=== PATIENT | female | born 1970 | race Hispanic/Latino ===

== ENCOUNTER 2017-06-01 13:09 | Emergency (ER) | payer BC | END 2017-06-01 14:01 | disposition home or self-care (01) | LOC: ERS 13:09 | DX: R51 Headache (principal); R09.81 Nasal congestion; K21.9 Gastro-esophageal reflux disease without esophagitis; M19.90 Unspecified osteoarthritis, unspecified site; G47.30 Sleep apnea, unspecified; F32.9 Major depressive disorder, single episode, unspecified; Z79.891 Long term (current) use of opiate analgesic; Z79.899 Other long term (current) drug therapy | CPT/HCPCS: 99283 ==

== ENCOUNTER 2017-06-20 07:04 | Outpatient (CLI) | payer BC | END 2017-06-20 07:05 | disposition home or self-care (01) | LOC: BICMAMMO 07:04 | PROVIDERS: ATTEND Family Medicine | DX: Z12.31 Encounter for screening mammogram for malignant neoplasm of breast (principal) | CPT/HCPCS: 77063; 77067; G0202 ==

== ENCOUNTER 2018-08-06 09:05 | Outpatient (CLI) | payer BC | END 2018-08-06 09:06 | disposition home or self-care (01) | LOC: BICMAMMO 09:05 | PROVIDERS: ATTEND Family Medicine | DX: Z12.31 Encounter for screening mammogram for malignant neoplasm of breast (principal); R92.1 Mammographic calcification found on diagnostic imaging of breast; Z80.3 Family history of malignant neoplasm of breast | CPT/HCPCS: 77063; 77067 ==

== ENCOUNTER 2018-11-10 06:59 | Day surgery (SDC) | payer BC ==
[2018-11-09 11:04] VITALS: BMI 35.4
--- NOTE | 2018-11-10 08:16 | RAD ---
EXAM: Thoracic spine: 3 views INDICATIONS: Back pain COMPARISON: None. FINDINGS: Thoracic vertebral maintain normal height and alignment. Disc spaces are maintained. Mild d egenerative osteophytes. No lytic or blastic process. Dorsal column Stimulators in place with leads at the T9 level. IMPRESSION: Mild degenerative change
--- NOTE | 2018-11-10 10:04 | CT ---
CT lumbar spine with contrast: (CT lumbar myelogram) DATE: 11/10/2018 HISTORY: 48-year-old female with chronic low back pain FINDINGS: There is moderate sclerosis, very mild osteophytosis, irregularity of articular surfaces, and vacuum joint phenomenon, involving the bilateral SI joints symmetrically. There are 5 lumbar-type vertebrae. Vertebral body heights and disc spaces are maintained. Alignment i s normal. No high-grade facet DJD at any level. Conus medullaris terminates at mid L1 level. Cauda equina is arranged in a symmetrical, normal distribution throughout the thecal sac. Prevertebral spac es are normal. No destructive osseous lesion. No significant disc bulge or significant focal disc herniation that impinges on a nerve root at any level. Dorsal column stimulator leads enter the spina l canal at approximately T11 or T10, and ascend a short distance to the mid T9 level. 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 IMPRESSION: 1.) Moderate arthrosis of the bilateral sacroiliac joints. 2.) The lumbar spine is normal.
--- NOTE | 2018-11-10 10:17 | RAD ---
MYELOGRAM LUMBAR SPINE: DATE: 11/10/2018 HISTORY: 48-year-old female with chronic low back pain TECHNIQUE: Informed consent was obtained. Rehab Tech imaging was performed. Patient was placed in a prone position an d the skin of the low back was prepped and draped in a standard sterile fashion. Topical anesthesia was achieved with buffered 1% lidocaine. 22-gauge spinal needle was then advanced uneventfully into t he thecal sac from a posterior para midline approach at the right L1-2level. 10 mL of radiopaque contrast was instilled under low pressure into the thecal sac, upon return of clear colorless CSF the needle hub. Imaging was stored for documentation. Needle was removed. Patient tolerated the procedure well, without complication evident. Patient was then transferred to CT to undergo subsequen t CT myelogram imaging. Reference separate exam(s) for additional details. FINDINGS: Intraoperative imaging reveals a needle overlying the lumbar spinal canal, with subsequent instillat ion of radiopaque contrast within the thecal sac. There is moderate sclerosis, very mild osteophytosis, irregularity of articular surfaces, and vacuum joint phenomenon, involving the bilateral SI joints symmetrically. There are 5 lumbar-type vertebrae. Vertebral body heights and disc spaces are maintained. Alignment i s normal. No high-grade facet DJD at any level. Conus medullaris terminates at mid L1 level. Dorsal column stimulator leads enter the spinal canal at lower thoracic spine. There is no central st enosis or neural foraminal stenosis at any level.. IMPRESSION: 1.) Moderate arthrosis of the bilateral sacroiliac joints. 2.) The lumbar spine is normal.
[2018-11-10] MEDS ORDERED: Iopamidol-M 200 41% 20 ML VIAL ONE (11:36)
== END 2018-11-10 09:50 | disposition home or self-care (01) ==
LOC: SDC 06:59
PROVIDERS: ATTEND Neurological Surgery
PROC: B02B1ZZ Computerized Tomography (CT Scan) of Spinal Cord using Low Osmolar Contrast (ICD-10-PCS; principal; 2018-11-10)
DX: M47.898 Other spondylosis, sacral and sacrococcygeal region (principal); G89.29 Other chronic pain; F32.9 Major depressive disorder, single episode, unspecified; K21.9 Gastro-esophageal reflux disease without esophagitis; G47.30 Sleep apnea, unspecified; M50.20 Other cervical disc displacement, unspecified cervical region; K58.9 Irritable bowel syndrome, unspecified; Z87.891 Personal history of nicotine dependence; Z79.891 Long term (current) use of opiate analgesic; Z79.51 Long term (current) use of inhaled steroids; Z79.899 Other long term (current) drug therapy
CPT/HCPCS: 62304; 72070; 72132

== ENCOUNTER 2019-04-16 10:12 | Outpatient (CLI) | payer BC | END 2019-04-16 10:13 | disposition home or self-care (01) | LOC: DTY/OP 10:12 | PROVIDERS: ATTEND Internal Medicine Gastroenterology | DX: K21.9 Gastro-esophageal reflux disease without esophagitis (principal); K58.9 Irritable bowel syndrome, unspecified; R68.89 Other general symptoms and signs | CPT/HCPCS: 97802 ==

== ENCOUNTER 2019-04-19 11:03 | Emergency (ER) | payer BC ==
[2019-04-19 12:37] LABS: #Eosinphils 0.1 thou/uL (0.0-0.7); #Lymphocytes 2.5 thou/uL (1.20-3.40); #Monocytes 0.5 thou/uL (0.11-0.59); #Neutrophils 4.6 thou/uL (1.40-6.50); %Basophils 0.5 % (0.0-1.0); %Eosinophils 1.8 % (0.0-10.0); %Lymphocytes 31.9 % (21.0-51.0); %Neutrophils 58.9 % (42.0-75.0); Hemoglobin 11.8 g/dL (12.0-16.0); Mean Corpuscular HGB CONC 31.7 g/dL (32.0-36.0); Mean Corpuscular Hemoglobin 28.3 pg (27.0-31.0); Mean Corpuscular Volume 89.2 fL (78.0-98.0); Mean Platelet Volume 8.6 fL (7.4-10.4); Platelet Count 337 thou/uL (130-400); RBC Distribution Width 12.3 % (11.5-14.5); Red Blood Cell (RBC) Count 4.19 mill/uL (4.20-5.40); White Blood Cell (WBC) Count 7.7 thou/uL (4.8-10.8)
--- NOTE | 2019-04-19 12:40 | RAD ---
Chest one view HISTORY: Allergic reaction. FINDINGS: Cardiac silhouette is magnified by projection. Pulmonary vasculature is unremarkable. Media stinum is midline. Dorsal column stimulator leads over the lower thoracic spine. No confluent airspace consolidation or evidence of pneumothorax. IMPRESSION: No active cardiopulmonary abnormalities are demonstrated.
[2019-04-19 12:59] LABS: ALT (SGPT) 14 U/L (8-55); AST (SGOT) 14 U/L (5-34); Albumin 4.5 g/dL (3.5-5.0); Alkaline Phosphatase 100 U/L (40-110); Anion Gap 10 mmol/L (10-20); BUN (Urea Nitrogen) 10 mg/dL (7.0-18.7); Bilirubin, Total 0.3 mg/dL (0.2-1.2); Calc. Creatinine Clearance 0 mL/min (70-130); Calcium 9.7 mg/dL (7.8-10.44); Carbon Dioxide 29 mmol/L (22-29); Chloride 104 mmol/L (98-107); Estimated GFR-MDRD 69; Globulin 3.1 g/dL (2.4-3.5); Glucose 84 mg/dL (70-105); Potassium 4.4 mmol/L (3.5-5.1); Protein, Total 7.6 g/dL (6.0-8.3); Sodium 139 mmol/L (136-145)
[2019-04-19 14:35] LABS: BHCG - Serum Negative (NEGATIVE); Pregs Control Background? CLEAR/WHITE (CLR/WHITE); Pregs Control Bar Appear? YES (CONTROL BAR)
[2019-04-19] MEDS ORDERED: Ondansetron PF 4 MG/2 ML Vial ONE (14:36)
[2019-04-19] MEDS ORDERED: Ketorolac Tromethamine 30 MG/ML VIAL ONE (14:36)
[2019-04-19 15:21] LABS: Troponin I Less than 0.010 ng/mL (< 0.028)
[2019-04-19] MEDS ORDERED: Meclizine HCl 25 MG TAB ONE (16:25)
== END 2019-04-19 17:27 | disposition home or self-care (01) ==
LOC: ERS 11:03
DX: R07.2 Precordial pain (principal); R51 Headache; K21.9 Gastro-esophageal reflux disease without esophagitis; G47.30 Sleep apnea, unspecified; F32.9 Major depressive disorder, single episode, unspecified; Z79.899 Other long term (current) drug therapy
CPT/HCPCS: 36415; 71045; 80053; 83690; 84484; 84703; 85025; 93005; 94760; 96361; 96374; 96375; J1885; J2405; J8597

== ENCOUNTER 2019-08-10 14:07 | Outpatient (CLI) | payer BC ==
--- NOTE | 2019-08-10 15:04 | MMO ---
Bilateral MAMMO Bilat Screen DDI+TARYN. CLINICAL HISTORY: Patient is 49 years old and is seen for screening. The patient has the following family history of breast cancer: cousin female. The patient has no personal history of cancer. The patient has a history of right Excisional Biopsy in 2012 - benign and right Excisional Biopsy in 2001 - benign. VIEWS: The views performed were: bilateral craniocaudal with tomosynthesis; bilateral mediolateral oblique with tomosynthesis; bilateral exaggerated craniocaudal; and right mediolateral oblique. FILMS COMPARED: The present examination has been compared to prior imaging studies performed at [facility] on 06/19/2015, 06/20/2016, 06/20/2017 and 08/06/2018. This study has been interpreted with the assistance of computer-aided detection. MAMMOGRAM FINDINGS: There are scattered fibroglandular densities. There are no suspicious masses, calcifications or areas of architectural distortion. There are benign appearing calcifications in both breasts. There are no suspicious masses, suspicious calcifications, or new areas of architectural distortion. IMPRESSION: THERE IS NO MAMMOGRAPHIC EVIDENCE OF MALIGNANCY. A ROUTINE FOLLOW-UP MAMMOGRAM IN 1 YEAR IS RECOMMENDED. THE RESULTS OF THIS EXAM WERE SENT TO THE PATIENT. ACR BI-RADS Category 2 - Benign finding MAMMOGRAPHY NOTE: 1. A negative mammogram report should not delay a biopsy if a dominant of clinically suspicious mass is present. 2. Approximately 10% to 15% of breast cancers are not detected by mammography. 3. Adenosis and dense breasts may obscure an underlying neoplasm. Reported by: TIM CROWDER MD Electonically Signed: [id number]
== END 2019-08-10 14:08 | disposition home or self-care (01) ==
LOC: BICMAMMO 14:07
PROVIDERS: ATTEND Family Medicine
DX: Z12.31 Encounter for screening mammogram for malignant neoplasm of breast (principal); Z91.89 Other specified personal risk factors, not elsewhere classified; Z80.3 Family history of malignant neoplasm of breast
CPT/HCPCS: 77063; 77067

== ENCOUNTER 2019-12-10 11:30 | Outpatient (CLI) | payer BC | END 2019-12-10 11:31 | disposition home or self-care (01) | LOC: DTY/OP 11:30 | PROVIDERS: ATTEND Surgery | DX: E66.01 Morbid (severe) obesity due to excess calories (principal) | CPT/HCPCS: 97802 ==

== ENCOUNTER 2020-03-20 07:34 | Outpatient (CLI) | payer BC, OTHER ==
[2020-03-20 11:22] LABS: #Basophils 0.1 thou/uL (0.0-0.2); #Eosinphils 0.1 thou/uL (0.0-0.7); #Lymphocytes 1.8 thou/uL (1.20-3.40); #Monocytes 0.4 thou/uL (0.11-0.59); #Neutrophils 4.6 thou/uL (1.40-6.50); %Basophils 0.8 % (0.0-1.0); %Eosinophils 1.7 % (0.0-10.0); %Lymphocytes 25.9 % (21.0-51.0); %Neutrophils 65.6 % (42.0-75.0); Mean Corpuscular HGB CONC 32.1 g/dL (32.0-36.0); Mean Corpuscular Hemoglobin 28.9 pg (27.0-31.0); Mean Platelet Volume 9.3 fL (7.4-10.4); Platelet Count 335 thou/uL (130-400); RBC Distribution Width 12.7 % (11.5-14.5); Red Blood Cell (RBC) Count 4.15 mill/uL (4.20-5.40)
[2020-03-20 11:40] LABS: Hemoglobin A1c 5.6 % (4.0-6.0)
[2020-03-20 11:43] LABS: ALT (SGPT) 17 U/L (8-55); AST (SGOT) 14 U/L (5-34); Albumin 4.3 g/dL (3.5-5.0); Alkaline Phosphatase 94 U/L (40-110); Anion Gap 13 mmol/L (10-20); BUN (Urea Nitrogen) 13 mg/dL (7.0-18.7); Bilirubin, Total 0.2 mg/dL (0.2-1.2); Calc. Creatinine Clearance 0 mL/min (70-130); Calcium 9.3 mg/dL (7.8-10.44); Carbon Dioxide 26 mmol/L (22-29); Chloride 102 mmol/L (98-107); Estimated GFR-MDRD 64; Glucose 98 mg/dL (70-105); Potassium 4.4 mmol/L (3.5-5.1); Protein, Total 7.3 g/dL (6.0-8.3); Sodium 137 mmol/L (136-145)
[2020-03-20 17:57] LABS: SARS-CoV-2 MS2 Positive; SARS-CoV-2 N Gene Negative; SARS-CoV-2 S Gene Negative; SARS-CoV-2 by NAA Not Detected (NotDetected); SARS-CoV-2 orf1ab Negative
== END 2020-03-20 07:35 | disposition home or self-care (01) ==
LOC: LABBT 07:34
PROVIDERS: ATTEND Surgery
DX: Z01.812 Encounter for preprocedural laboratory examination (principal); Z20.828 Contact with and (suspected) exposure to other viral communicable diseases; E66.01 Morbid (severe) obesity due to excess calories
CPT/HCPCS: 80053; 83036; 85025; 87635; U0003

== ENCOUNTER 2020-03-20 10:00 | Inpatient (IN) | payer BC, OTHER ==
[2020-03-21 10:36] VITALS: BMI 36.0
[2020-03-23] MEDS ORDERED: PROPOFOL 200 MG/20 ML VIAL ONE (09:59)
[2020-03-23] MEDS ORDERED: Rocuronium Bromide 10 MG/ML (10ML VIAL) ONE (09:59)
[2020-03-23] MEDS ORDERED: Dexamethasone 20 MG/5 ML VIAL ONE (09:59)
[2020-03-23] MEDS ORDERED: Ondansetron PF 4 MG/2 ML Vial ONE (09:59)
[2020-03-23] MEDS ORDERED: Lidocaine 1% PF 5 ML VIAL ONE (09:59)
[2020-03-23] MEDS ORDERED: Bupivacaine 0.25% HCL 30 ML VIAL ONE (10:19)
[2020-03-23] MEDS ORDERED: Lidocaine 1% w/Epinephrine 1:100K 20 ML VIAL ONE (10:19)
[2020-03-23] MEDS ORDERED: Fentanyl 100 MCG/2 ML VIAL ONE ×2 (10:32→14:10)
[2020-03-23] MEDS ORDERED: HYDROmorphone 0.5 MG/0.5 ML SYRINGE ONE (10:32)
--- NOTE | 2020-03-23 12:06 | RAD ---
CHEST 1 VIEW: Date: 03/23/2020 INDICATION: Preprocedure evaluation. COMPARISON: Prior exam dated 04/19/2019. FINDINGS: There is a dorsal column stimulator overlying the lower thoracic spine. The lungs are clear. Heart si ze is normal. No pleural effusion or pneumothorax is evident. No acute osseous abnormality is noted. IMPRESSION: No acute abnormality. Stable dorsal column stimulator. POS: BH
[2020-03-23] MEDS ORDERED: SUGAMMADEX SODIUM 200 MG/2 ML VIAL ONE (13:12)
[2020-03-23] MEDS ORDERED: diphenhydrAMINE 50 MG/ML VIAL IVP PRN ×2 (13:27→14:25)
[2020-03-23] MEDS ORDERED: Dextrose 50% Abboject 50 ML SYRINGE SLOW IVP PRN (13:27)
[2020-03-23] MEDS ORDERED: Dextrose 5% in Water 1,000 ML IV PRN (13:27)
[2020-03-23] MEDS ORDERED: Promethazine HCl 25 MG/ML VIAL IM PRN ×3 (13:27→14:25)
[2020-03-23] MEDS ORDERED: Hydrocodone-Acetamin 15 ML UDCUP PO PRN (13:27)
[2020-03-23] MEDS ORDERED: Ondansetron PF 4 MG/2 ML Vial IVP PRN ×2 (13:27→14:25)
[2020-03-23] MEDS ORDERED: hydrALAZINE 20 MG/ML VIAL SLOW IVP PRN (13:27)
[2020-03-23] MEDS ORDERED: Promethazine HCl 25 MG/ML VIAL SLOW IVP PRN (13:44)
[2020-03-23] MEDS ORDERED: HYDROmorphone 2 MG/ML VIAL SLOW IVP PRN (13:44)
[2020-03-23] MEDS ORDERED: Ondansetron HCl/PF 4 MG/2 ML Vial IVP PRN (13:44)
[2020-03-23] MEDS ORDERED: diphenhydrAMINE 50 MG/ML VIAL IM PRN (14:25)
[2020-03-23] MEDS ORDERED: fentaNYL Citrate/PF 2,000 MCG in Sodium Chloride 0.9% 60 ML IV PRN (14:25)
[2020-03-23] MEDS ORDERED: Zolpidem Tartrate 5 MG TAB PO PRN (14:25)
[2020-03-23] MEDS ORDERED: diphenhydrAMINE 25 MG CAP PO PRN (14:25)
[2020-03-23] MEDS ORDERED: Naloxone HCl 0.4 mg/ml Vial IV PRN (14:25)
[2020-03-23] MEDS ORDERED: Communication Order-Pharmacy FS SCH (14:30)
[2020-03-23] MEDS ORDERED: Promethazine HCl 25 MG/ML VIAL ONE (14:56)
[2020-03-23] MEDS: D5 1/2 NS w/20 mEq KCL 1,000 ML IV SCH ×3 (16:08→21:10)
[2020-03-23] MEDS: CEFAZOLIN 2 GM in Premix Bag 1 BAG IVPB SCH (17:08)
[2020-03-23] MEDS: Ketorolac Tromethamine 30 MG/ML VIAL IVP SCH (17:19)
[2020-03-23] MEDS ORDERED: Ketorolac Tromethamine 30 MG/ML VIAL IVP SCH (18:00)
--- NOTE | 2020-03-23 18:52 | OP ---
DATE OF PROCEDURE: 03/23/2020 INDICATIONS FOR PROCEDURE: This is a 49-year-old female who is morbidly obese. She has had severe reflux esophagitis. FINDINGS: 100 cm Elvi limb, 50 cm biliary pancreatic limb. Lap Elvi-en-Y gastric bypass with esophagogastroduodenoscopy performed. DESCRIPTION OF PROCEDURE: After informed consent was obtained, the patient was taken to the operating room, given general endotracheal anesthesia, placed in the supine position. Abdomen was prepped and draped in usual fashion. Local anesthesia was infiltrated subcutaneously and deep. A 12 mm incision was performed approximately 8 inches below the xiphoid, slightly to left. Veress needle was inserted. Drop test performed. Pneumoperitoneum was created to a volume of 2 L of carbon dioxide. Utilizing a bladeless 12-mm trocar and 0-degree laparoscope, direct visual entry into the abdominal cavity was performed. Pneumoperitoneum was created to a pressure of 15 mmHg. A 0-degree laparoscope was inserted under direct vision. Two 12 mm ports were placed on the right and one on the left. The laparoscopic lysis of adhesions had to be performed to free up the omentum. The omentum was grasped and advanced superiorly. The ligament of Treitz was found, and 50 cm of proximal small bowel measured off. The jejunum was divided utilizing a linear 60-mm white load stapler. Then, distally 100 cm of bowel was measured off. A [id number] functional end-to-end anastomosis was performed. Enterotomies were performed on the antimesenteric aspect of both limbs. Enterotomies created. The linear 60-mm white load stapler was inserted, one limb in each limb of bowel and fired. The common enterotomy was then closed transversely with a 3-0 PDS Stratafix. The potential hernia space of Wells was closed with a [id number] of 2-0 silk tied intracorporeally. Then, the patient was placed in the steep reverse Trendelenburg position. The omentum was divided utilizing a ligature to the transverse colon. A Neva liver retractor was inserted. The left lobe of the liver was retracted superiorly. On the lesser curve, the lesser omentum was entered. Then, the stomach was divided transversely with a 60-mm blue load stapler. Then, a pouch was created towards the ligament of Treitz with a series of blue 60-mm ovi. Then, the Elvi limb was grasped and brought up to this area, and a gastrotomy was performed with the cautery and then further opened. Then, enterotomy was performed. The linear 60-mm blue load stapler was inserted, one limb in the small bowel, one limb in the stomach, closed and fired. The common enterotomy was closed transversely with 3-0 PDS Stratafix. Hemostasis was assured. Intraoperative endoscopy was then performed. The video endoscope was inserted under direct vision, advanced into the stomach and into the small bowel. There was no bleeding. No obstruction. The bowel was decompressed. Scope was removed. Hemostasis was assured. Trocars and retractors were removed. The skin was closed with interrupted 4-0 Rapide. Dermabond was applied. The patient tolerated the procedure well, transferred to Recovery in good condition. Sponge and needle count verified correct x2. Job ID: [id number]
[2020-03-24] MEDS: Ketorolac Tromethamine 30 MG/ML VIAL IVP SCH ×3 (00:59→12:25)
[2020-03-24] MEDS: CEFAZOLIN 2 GM in Premix Bag 1 BAG IVPB SCH (01:00)
[2020-03-24 05:22] LABS: #Lymphocytes 1.2 thou/uL (1.20-3.40); #Monocytes 0.9 thou/uL (0.11-0.59); #Neutrophils 11.9 thou/uL (1.40-6.50); %Eosinophils 0.1 % (0.0-10.0); %Lymphocytes 8.6 % (21.0-51.0); %Monocytes 6.5 % (0.0-10.0); %Neutrophils 84.7 % (42.0-75.0); Hemoglobin 11.2 g/dL (12.0-16.0); Mean Corpuscular HGB CONC 31.9 g/dL (32.0-36.0); Mean Corpuscular Hemoglobin 28.8 pg (27.0-31.0); Mean Corpuscular Volume 90.1 fL (78.0-98.0); Mean Platelet Volume 9.2 fL (7.4-10.4); Platelet Count 328 thou/uL (130-400); RBC Distribution Width 12.8 % (11.5-14.5); Red Blood Cell (RBC) Count 3.88 mill/uL (4.20-5.40); White Blood Cell (WBC) Count 14.1 thou/uL (4.8-10.8)
[2020-03-24 05:44] LABS: Anion Gap 11 mmol/L (10-20); BUN (Urea Nitrogen) 8 mg/dL (7.0-18.7); Calc. Creatinine Clearance 117 mL/min (70-130); Calcium 7.9 mg/dL (7.8-10.44); Carbon Dioxide 23 mmol/L (22-29); Chloride 102 mmol/L (98-107); Estimated GFR-MDRD 75; Glucose 132 mg/dL (70-105); Potassium 4.3 mmol/L (3.5-5.1); Sodium 132 mmol/L (136-145)
[2020-03-24] MEDS ORDERED: Pantoprazole 40 MG VIAL IVP SCH (09:00)
[2020-03-24] MEDS ORDERED: Enoxaparin Sodium 40 MG/0.4 ML SYRINGE SC SCH (09:00)
[2020-03-24 11:30] VITALS: BP 124/81; TEMP 98.1
[2020-03-24 11:31] LABS: SARS-CoV-2 MS2 Positive; SARS-CoV-2 N Gene Negative; SARS-CoV-2 S Gene Negative; SARS-CoV-2 by NAA Not Detected (NotDetected); SARS-CoV-2 orf1ab Negative
--- NOTE | 2020-03-25 05:55 | DIS ---
DATE OF ADMISSION: 03/23/2020 DATE OF DISCHARGE: 03/24/2020 DISCHARGE DIAGNOSIS: Morbid obesity with gastroesophageal reflux. PROCEDURES DURING ADMISSION: Laparoscopic Elvi-en-Y gastric bypass, intraoperative esophagogastroscopy. HOSPITAL COURSE: The patient was admitted, taken to the operating room, where she underwent the gastric bypass and EGD. Postoperatively, she has done well. She is tolerating her liquids well. Her pain is controlled on p.o. meds. She is discharged home on hydrocodone and Zofran. She will follow up with me in 2 weeks. Job ID: [id number]
== END 2020-03-24 14:40 | disposition home or self-care (01) | DRG 621 ==
LOC: SURG A 03-23 09:05 → SJJU 03-23 15:22
PROVIDERS: ADMIT Surgery; ATTEND Surgery
PROC: 0D164ZA Bypass Stomach to Jejunum, Percutaneous Endoscopic Approach (ICD-10-PCS; principal; 2020-03-23)
PROC: 0DJ08ZZ Inspection of Upper Intestinal Tract, Via Natural or Artificial Opening Endoscopic (ICD-10-PCS; 2020-03-23)
DX: E66.01 Morbid (severe) obesity due to excess calories (principal); K21.0 Gastro-esophageal reflux disease with esophagitis; Z20.828 Contact with and (suspected) exposure to other viral communicable diseases; Z68.36 Body mass index [BMI] 36.0-36.9, adult
CPT/HCPCS: 36415; 71045; 80048; 80053; 83036; 85025; 87635; 94760; C9113; J0690; J1100; J1170; J1650; J1885; J2405; J2550; J2704; J3010; J3480; S0020; U0003

== ENCOUNTER 2020-03-25 06:13 | Inpatient (IN) | payer BC, MEDICARE ==
[2020-03-25 07:24] LABS: #Eosinphils 0.1 thou/uL (0.0-0.7); #Lymphocytes 1.2 thou/uL (1.20-3.40); #Neutrophils 12.2 thou/uL (1.40-6.50); %Basophils 0.2 % (0.0-1.0); %Eosinophils 0.4 % (0.0-10.0); %Lymphocytes 8.1 % (21.0-51.0); %Monocytes 6.9 % (0.0-10.0); %Neutrophils 84.4 % (42.0-75.0); Mean Corpuscular HGB CONC 32.5 g/dL (32.0-36.0); Mean Corpuscular Volume 89.1 fL (78.0-98.0); Mean Platelet Volume 9.6 fL (7.4-10.4); Platelet Count 281 thou/uL (130-400); RBC Distribution Width 12.8 % (11.5-14.5); Red Blood Cell (RBC) Count 3.81 mill/uL (4.20-5.40); White Blood Cell (WBC) Count 14.5 thou/uL (4.8-10.8)
[2020-03-25] MEDS ORDERED: Morphine 4 MG/ML VIAL ONE (07:34)
[2020-03-25 07:43] LABS: ALT (SGPT) 12 U/L (8-55); AST (SGOT) 19 U/L (5-34); Albumin 3.6 g/dL (3.5-5.0); Alkaline Phosphatase 94 U/L (40-110); Anion Gap 14 mmol/L (10-20); BUN (Urea Nitrogen) 7 mg/dL (7.0-18.7); Bilirubin, Total 0.5 mg/dL (0.2-1.2); Calc. Creatinine Clearance 0 mL/min (70-130); Calcium 8.3 mg/dL (7.8-10.44); Carbon Dioxide 23 mmol/L (22-29); Chloride 101 mmol/L (98-107); Estimated GFR-MDRD 78; Globulin 3.5 g/dL (2.4-3.5); Glucose 99 mg/dL (70-105); Protein, Total 7.1 g/dL (6.0-8.3); Sodium 134 mmol/L (136-145)
[2020-03-25 08:04] LABS: CKMB 1.5 ng/mL (0-6.6)
[2020-03-25 08:24] LABS: Bacteria/HPF 2+ HPF (None Seen); Bilirubin Negative (Negative); Blood, Urine Negative (Negative); Clarity Turbid (Clear); Glucose, Urine (Dipstick) Normal (Negative); Ketone, Urine Greater than 150 mg/dL (Negative); Leukocyte Negative Leu/uL (Negative); Nitrite Negative (Negative); Protein, Urine (Dipstick) 70 mg/dL (Neg-Trace); RBC/HPF 0-3 HPF (0-3); Specific Gravity, Urine 1.021 (1.002-1.036); Urobilinogen Normal mg/dL (Less than 2); WBC/HPF 0-3 HPF (0-3)
[2020-03-25] MEDS ORDERED: Cefepime 2 GM VIAL ONE (08:51)
[2020-03-25] MEDS ORDERED: cefTRIAXone\\ROCEPHIN 2 GM VIAL ONE (08:54)
--- NOTE | 2020-03-25 09:04 | RAD ---
PORTABLE CHEST: HISTORY: Gastric bypass 2 days ago now with fever. FINDINGS: Heart size is within normal limits for portable technique. Some bibasilar atelectatic lung change is seen, somewhat more prominent in the retrocardiac region. IMPRESSION: Bibasilar atelectatic lung change. POS: OFF
--- NOTE | 2020-03-25 09:19 | CT ---
CT ANGIOGRAM THORAX WITH IV CONTRAST AND 3-D RECONSTRUCTIONS CLINICAL INDICATION: Shortness of breath and tachycardia. Fever. Gastric bypass procedure 2 days ago. COMPARISON: None FINDINGS: Pulmonary arteries: No filling defects are seen in the pulmonary arteries to suggest a pulmonary embo jennifer. Aorta: The aorta is normal in caliber without evidence of an aortic dissection. Lungs: There is parenchymal consolidation seen at each lung base which could be related to atelectasi s, bibasilar pneumonia, or aspiration pneumonitis. Tiny left pleural effusion is present. Mediastinum: The heart is mildly enlarged. No enlarged lymph nodes are identified. Thyroid gland: The limited visualized inferior aspect of the thyroid gland has a normal CT appearance . Osseous structures: A dorsal column stimulator device is noted in place terminates T9-T10 level. No s uspicious lytic or sclerotic osseous lesions are identified. Minimal degenerative changes are present in the spine. Chest wall: Within normal limits Upper abdomen: Postoperative changes related to gastric bypass procedure partially imaged on this exa m. Evidence of prior cholecystectomy is seen. Punctate foci of gas are seen anterior to the liver with trace amount of free fluid. These findings are likely related to recent postoperative changes. IMPRESSION: 1. Consolidation posteromedial aspect of each lung base which could be related to bibasilar volume lo ss, bilateral pneumonia, or aspiration pneumonitis. 2. Tiny left pleural effusion. 3. Mild cardiomegaly. 4. No CT evidence of a pulmonary embolus. 5. Postoperative changes related to gastric bypass procedure partially imaged on this CT angiogram. 6. Punctate foci of gas with trace amount of free fluid anterior to the left hepatic lobe likely attr ibutable to recent postoperative changes.
[2020-03-25] MEDS ORDERED: Azithromycin 500 MG VIAL ONE (12:01)
[2020-03-25] MEDS ORDERED: Vancomycin 1.5 GRAM/300 ML BAG 1.5 GM in Premix Bag 1 BAG IVPB SCH (12:45)
[2020-03-25] MEDS ORDERED: Ondansetron PF 4 MG/2 ML Vial ONE (12:50)
[2020-03-25] MEDS ORDERED: Iopamidol 370 76% 50 ML VIAL FS ONE (13:40)
[2020-03-25] MEDS ORDERED: Iopamidol-370 76% 500 ML 1 ML ONE (13:40)
--- NOTE | 2020-03-25 13:43 | CT ---
CT OF ABDOMEN PERFORMED WITH INTRAVENOUS CONTRAST ENHANCEMENT: 03/25/20 HISTORY: Epigastric pain and bloating with shortness of breath. Fever. Recent gastric bypass surgery two days ago. The lung bases show bibasilar atelectasis or infiltrate, somewhat more prominent changes in the left base with air bronchograms in both bases. The liver and spleen show no focal abnormalities. The pancreas shows no evidence of mass. The gallbla dder has been removed. There is some mild ductal prominence probably just on the basis of the cholecy stectomy. Right and left adrenal glands and right and left kidneys are normal in size. There is no significant periaortic or mesenteric adenopathy. Postoperative changes of the stomach related to a bypass procedure noted. Some oral contrast was give n. I see no evidence of a leak. No contrast is seen in the excluded portion of the stomach. No free f luid within the abdomen. CT OF PELVIS PERFORMED WITH CONTRAST ENHANCEMENT: No adenopathy, mass or free fluid. IMPRESSION: 1. Prominent bibasilar lung changes consistent with atelectasis or developing infiltrate. 2. Postop gastric bypass. I do not see any definite signs of a leak. POS: OFF
[2020-03-25] MEDS ORDERED: Guaifenesin DM 100-10/5 ML UDCUP PO PRN (14:41)
[2020-03-25] MEDS ORDERED: Bisacodyl 10 MG SUPP PR PRN (14:41)
[2020-03-25] MEDS ORDERED: Calcium Carbonate 500 MG ChewTAB PO PRN (14:41)
[2020-03-25] MEDS ORDERED: Acetaminophen 650 MG Suppository PR PRN (14:41)
[2020-03-25 14:50] VITALS: BMI 34.9
[2020-03-25] MEDS: Sodium Chloride 0.9% 1,000 ML IV SCH (15:53)
--- NOTE | 2020-03-25 16:16 | PDOC.HOSPP ---
- Subjective Encounter Date: 03/25/20 Encounter Time: 16:00 Subjective: no fever now, sob better on O2 - Objective Vital Signs & Weight: Vital Signs (12 hours) Temp Pulse Resp BP Pulse Ox 03/25/20 14:05 98.7 F 110 H 16 132/80 100 Weight Weight 191 lb Result Diagrams: 03/26/20 05:31 03/26/20 05:31 Hospitalist ROS - Medication Medications: Active Medications Generic Name Dose Route Start Last Admin Trade Name Freq PRN Reason Stop Dose Admin Sodium Chloride 1,000 mls @ 80 mls/hr 03/25/20 14:45 03/25/20 15:53 Normal Saline 0.9% IV 1,000 mls .[id number] RYAN Administration - Exam General Appearance: awake alert Eye: PERRL, anicteric sclera ENT: no oropharyngeal lesions, moist mucosa Neck: supple, no JVD Heart: RRR, no murmur Respiratory: no wheezes, no rales, rhonchi Gastrointestinal: soft, non-tender, non-distended, normal bowel sounds Extremities: no cyanosis, no edema Neurological: cranial nerve grossly intact, no focal deficits Psychiatric: A&O x 3 Hosp A/P (1) PNA (pneumonia) Code(s): J18.9 - PNEUMONIA, UNSPECIFIED ORGANISM Status: Acute Qualifiers: Pneumonia type: due to unspecified organism (2) Obesity (BMI 30.0-34.9) Code(s): E66.9 - OBESITY, UNSPECIFIED Status: Chronic (3) GEETHA (obstructive sleep apnea) Code(s): G47.33 - OBSTRUCTIVE SLEEP APNEA (ADULT) (PEDIATRIC) Status: Chronic (4) Mood disorder Code(s): F39 - UNSPECIFIED MOOD [AFFECTIVE] DISORDER Status: Chronic (5) Status post gastric bypass for obesity Code(s): Z98.84 - BARIATRIC SURGERY STATUS Status: Acute - Plan is on cefepime and zithromax i.spirometry home meds nebs prn iv fluids to ambulate as tolerated
[2020-03-25] MEDS: Acetaminophen 325 MG TAB PO PRN (17:47)
[2020-03-25] MEDS: Ondansetron PF 4 MG/2 ML Vial IVP PRN (17:52)
[2020-03-25] MEDS: Zolpidem Tartrate 5 MG TAB PO SCH (20:37)
[2020-03-25] MEDS: DULoxetine 60 MG CAP PO SCH (20:37)
[2020-03-25] MEDS: Dicyclomine 20 MG TAB PO SCH (20:37)
[2020-03-25] MEDS: Cefepime 1 GM in Sodium Chloride 0.9% 100 ML IVPB SCH (20:37)
[2020-03-25] MEDS ORDERED: Famotidine 20 MG TAB PO SCH (21:00)
[2020-03-26] MEDS: Sodium Chloride 0.9% 1,000 ML IV SCH ×2 (04:41→14:40)
[2020-03-26 05:44] LABS: #Eosinphils 0.2 thou/uL (0.0-0.7); #Lymphocytes 1.4 thou/uL (1.20-3.40); #Monocytes 0.6 thou/uL (0.11-0.59); #Neutrophils 8.2 thou/uL (1.40-6.50); %Basophils 0.2 % (0.0-1.0); %Eosinophils 2.2 % (0.0-10.0); %Lymphocytes 12.9 % (21.0-51.0); %Monocytes 6.2 % (0.0-10.0); %Neutrophils 78.5 % (42.0-75.0); Hemoglobin 9.7 g/dL (12.0-16.0); Mean Corpuscular HGB CONC 32.5 g/dL (32.0-36.0); Mean Corpuscular Hemoglobin 29.3 pg (27.0-31.0); Mean Corpuscular Volume 89.9 fL (78.0-98.0); Platelet Count 264 thou/uL (130-400); RBC Distribution Width 12.7 % (11.5-14.5); White Blood Cell (WBC) Count 10.4 thou/uL (4.8-10.8)
--- NOTE | 2020-03-26 05:45 | HP ---
CHIEF COMPLAINT: Fever. HISTORY OF PRESENT ILLNESS: The patient is a 49-year-old female, 2 days status post laparoscopic Elvi-en-Y gastric bypass for morbid obesity. She said she woke up this morning and felt hot and took her temperature, it was 101.5, so she came to the emergency room. She was found to be somewhat tachycardic as well. CT scan showed bibasilar infiltrates, but no free fluid or free air. They could not see any evidence of a leak. She reports that she really had not been ambulating much. PAST MEDICAL HISTORY: Consistent with depression, . PAST SURGICAL HISTORY: She has had hysterectomy, cholecystectomy, and breast biopsy. SOCIAL HISTORY: She is . No tobacco. No alcohol. PHYSICAL EXAMINATION: VITAL SIGNS: Temperature is 98.7, pulse 110, and blood pressure is 132/80. GENERAL: She is awake, alert, does not appear to be in any distress. HEENT: Unremarkable. LUNGS: Clear. HEART: Regular rate and rhythm. ABDOMEN: Distended, really no tenderness. The incisions look good. LABORATORY DATA: Her white count is 14.5, H and H of 11 and 34, and platelet count 281. Electrolytes are fine. ASSESSMENT: Fever, tachycardia, also she has her , who has recently been positive for COVID, although her COVID test was negative. She may have atelectasis versus pneumonia. PLAN: Ambulation. Incentive spirometer. Antibiotics. Job ID: [id number]
[2020-03-26 06:05] LABS: Anion Gap 13 mmol/L (10-20); BUN (Urea Nitrogen) 5 mg/dL (7.0-18.7); Calc. Creatinine Clearance 135 mL/min (70-130); Calcium 7.9 mg/dL (7.8-10.44); Carbon Dioxide 20 mmol/L (22-29); Chloride 107 mmol/L (98-107); Estimated GFR-MDRD Greater than 90; Glucose 78 mg/dL (70-105); Potassium 3.8 mmol/L (3.5-5.1); Sodium 136 mmol/L (136-145)
[2020-03-26] MEDS: Dicyclomine 20 MG TAB PO SCH ×2 (09:16→21:42)
[2020-03-26] MEDS: Enoxaparin Sodium 40 MG/0.4 ML SYRINGE SC SCH (09:17)
[2020-03-26] MEDS: Bupropion 150 MG XL TAB PO SCH (09:17)
[2020-03-26] MEDS: Fluticasone Propionate Nasal Spray 16 gm Bottle NASAL SCH (09:18)
[2020-03-26] MEDS: Pantoprazole 40 MG GRANULES PACKET PO SCH (09:18)
[2020-03-26] MEDS: Cefepime 1 GM in Sodium Chloride 0.9% 100 ML IVPB SCH ×2 (09:27→21:41)
[2020-03-26] MEDS ORDERED: Milk Of Magnesia 30 ML UDCUP PO PRN (10:34)
--- NOTE | 2020-03-26 10:56 | PRG ---
DATE OF SERVICE: 03/26/2020 SUBJECTIVE: The patient is feeling a lot better today. She is passing gas. She is tolerating full liquids. No nausea or vomiting. PHYSICAL EXAMINATION: VITAL SIGNS: Temperature is 98.2, pulse 95, blood pressure 128/82. GENERAL: She is awake, alert. ABDOMEN: Soft, nondistended, nontender. Incisions look good. LABORATORY DATA: Her white count is down to 10, H and H of 9.7 and 29, platelet count 264. Electrolytes are fine. ASSESSMENT: Improving pneumonia. PLAN: Continue IV antibiotics. Ambulate. Pulmonary toilet. Job ID: [id number]
--- NOTE | 2020-03-26 11:32 | PDOC.HOSPP ---
- Subjective Encounter Date: 03/26/20 Encounter Time: 09:45 Subjective: no sob, feels better is amb in room tolerating oral diet - Objective Vital Signs & Weight: Vital Signs (12 hours) Temp Pulse Resp BP Pulse Ox 03/26/20 07:43 98.2 F 95 18 128/82 92 L 03/25/20 23:36 97.8 F 89 18 122/80 91 L Weight Weight 191 lb I&O: 03/25/20 03/26/20 03/27/20 06:59 06:59 06:59 Intake Total 1300 960 Balance 1300 960 Result Diagrams: 03/26/20 05:31 03/26/20 05:31 Hospitalist ROS - Medication Medications: Active Medications Generic Name Dose Route Start Last Admin Trade Name Freq PRN Reason Stop Dose Admin Acetaminophen 650 mg 03/25/20 14:41 03/25/20 17:47 Acetaminophen 325 Mg Tab PO 650 mg Q4H PRN Administration Headache/Fever/Mild Pain (1-3) Bupropion HCl 150 mg 03/26/20 09:00 03/26/20 09:17 Bupropion 150 Mg Xl Tab PO 150 mg DAILY RYAN Administration Dicyclomine HCl 20 mg 03/25/20 21:00 03/26/20 09:16 Dicyclomine 20 Mg Tab PO 20 mg BID RYAN Administration Duloxetine HCl 60 mg 03/25/20 21:00 03/25/20 20:37 Duloxetine 60 Mg Cap PO Not Given HS RYAN Enoxaparin Sodium 40 mg 03/26/20 09:00 03/26/20 09:17 Enoxaparin Sodium 40 Mg/0.4 Ml Syringe SC 40 mg 0900 RYAN Administration Fluticasone Propionate 0 gm 03/26/20 09:00 03/26/20 09:18 Fluticasone Propionate Nasal Raymond 16 Gm Bottle NASAL 2 spr DAILY RYAN Administration Cefepime HCl 1 gm/ Sodium 100 mls @ 200 mls/hr 03/25/20 21:00 03/26/20 09:27 Chloride IVPB 100 mls Q12HR RYAN Administration Sodium Chloride 1,000 mls @ 80 mls/hr 03/25/20 14:45 03/26/20 04:41 Normal Saline 0.9% IV Not Given .[id number] RYAN Ondansetron HCl 4 mg 03/25/20 14:41 03/25/20 17:52 Ondansetron Pf 4 Mg/2 Ml Vial IVP 4 mg Q6H PRN Administration Nausea/Vomiting Pantoprazole Sodium 40 mg 03/26/20 09:00 03/26/20 09:18 Pantoprazole 40 Mg Granules Packet PO 40 mg DAILY RYAN Administration Zolpidem Tartrate 10 mg 03/25/20 21:00 03/25/20 20:37 Zolpidem Tartrate 5 Mg Tab PO 10 mg HS RYAN Administration - Exam General Appearance: awake alert Eye: PERRL, anicteric sclera ENT: no oropharyngeal lesions, moist mucosa Neck: supple, no JVD Heart: RRR, no murmur Respiratory: no wheezes, no rales Gastrointestinal: soft, non-tender, non-distended, normal bowel sounds Extremities: no cyanosis, no edema Neurological: cranial nerve grossly intact, no focal deficits Psychiatric: normal affect, A&O x 3 Hosp A/P (1) PNA (pneumonia) Code(s): J18.9 - PNEUMONIA, UNSPECIFIED ORGANISM Status: Acute Qualifiers: Pneumonia type: due to unspecified organism (2) Obesity (BMI 30.0-34.9) Code(s): E66.9 - OBESITY, UNSPECIFIED Status: Chronic (3) GEETHA (obstructive sleep apnea) Code(s): G47.33 - OBSTRUCTIVE SLEEP APNEA (ADULT) (PEDIATRIC) Status: Chronic (4) Mood disorder Code(s): F39 - UNSPECIFIED MOOD [AFFECTIVE] DISORDER Status: Chronic (5) Status post gastric bypass for obesity Code(s): Z98.84 - BARIATRIC SURGERY STATUS Status: Acute - Plan is on cefepime and zithromax i.spirometry home meds nebs prn iv fluids to ambulate as tolerated hemostable encourage po intake
[2020-03-26] MEDS: Azithromycin 500 MG in Sodium Chloride 0.9% 250 ML 250 ML IVPB SCH (12:45)
[2020-03-26] MEDS: Ondansetron PF 4 MG/2 ML Vial IVP PRN ×2 (13:31→20:08)
[2020-03-26] MEDS: Acetaminophen 325 MG TAB PO PRN ×2 (13:34→21:41)
[2020-03-26] MEDS: Senokot S 8.6-50 MG TAB PO PRN (13:39)
[2020-03-26] MEDS: DULoxetine 60 MG CAP PO SCH (21:39)
[2020-03-26] MEDS: Zolpidem Tartrate 5 MG TAB PO SCH (21:42)
[2020-03-27] MEDS: Sodium Chloride 0.9% 1,000 ML IV SCH ×3 (04:17→18:05)
[2020-03-27] MEDS ORDERED: Ondansetron ODT 4 MG TAB PO PRN (05:17)
[2020-03-27] MEDS: Senokot S 8.6-50 MG TAB PO PRN (05:22)
[2020-03-27] MEDS ORDERED: Promethazine HCl 12.5 MG in Sodium Chloride 0.9% 50 ML IVPB PRN (06:01)
[2020-03-27] MEDS: Bupropion 150 MG XL TAB PO SCH (08:46)
[2020-03-27] MEDS: Dicyclomine 20 MG TAB PO SCH ×2 (08:46→21:10)
[2020-03-27] MEDS: Pantoprazole 40 MG GRANULES PACKET PO SCH (08:47)
[2020-03-27] MEDS: Pantoprazole 40 MG VIAL IVP SCH (08:48)
[2020-03-27] MEDS: Enoxaparin Sodium 40 MG/0.4 ML SYRINGE SC SCH (08:48)
[2020-03-27] MEDS: Cefepime 1 GM in Sodium Chloride 0.9% 100 ML IVPB SCH ×2 (08:48→21:11)
[2020-03-27] MEDS: Fluticasone Propionate Nasal Spray 16 gm Bottle NASAL SCH (08:48)
--- NOTE | 2020-03-27 08:48 | PRG ---
DATE OF SERVICE: 03/27/2020 SUBJECTIVE: The patient is not doing as well today. She says that she started vomiting last night after trying to eat her evening meal. She has really not much pain. OBJECTIVE: VITAL SIGNS: Her temperature is 98.5, pulse 96, and blood pressure 127/82. GENERAL: She does not appear to be in any distress. LUNGS: Clear. ABDOMEN: Soft, nontender. Incisions are good. ASSESSMENT: Postoperative vomiting. PLAN: Gastrografin swallow, n.p.o. Job ID: [id number]
[2020-03-27] MEDS ORDERED: GASTROGRAFIN 30 ML BOT ONE (09:27)
[2020-03-27] MEDS: Ondansetron PF 4 MG/2 ML Vial IVP PRN (11:22)
[2020-03-27] MEDS: Azithromycin 500 MG in Sodium Chloride 0.9% 250 ML 250 ML IVPB SCH (12:12)
--- NOTE | 2020-03-27 12:23 | PDOC.HOSPP ---
- Subjective Encounter Date: 03/27/20 Encounter Time: 09:00 Subjective: had a rough night with nausea/vomiting feels better now is npo no sob or chest pain or palpitations is ambulating in room - Objective Vital Signs & Weight: Vital Signs (12 hours) Temp Pulse Resp BP Pulse Ox 03/27/20 07:35 98.5 F 96 14 127/82 94 L 03/27/20 06:28 98.5 F 95 18 142/85 H 94 L 03/27/20 00:21 98.3 F 88 16 102/69 92 L Weight Weight 191 lb I&O: 03/26/20 03/27/20 03/28/20 06:59 06:59 06:59 Intake Total 1300 2210 960 Balance 1300 2210 960 Result Diagrams: 03/26/20 05:31 03/26/20 05:31 Hospitalist ROS - Medication Medications: Active Medications Generic Name Dose Route Start Last Admin Trade Name Freq PRN Reason Stop Dose Admin Acetaminophen 650 mg 03/25/20 14:41 03/26/20 21:41 Acetaminophen 325 Mg Tab PO 650 mg Q4H PRN Administration Headache/Fever/Mild Pain (1-3) Bupropion HCl 150 mg 03/26/20 09:00 03/27/20 08:46 Bupropion 150 Mg Xl Tab PO Not Given DAILY RYAN Dicyclomine HCl 20 mg 03/25/20 21:00 03/27/20 08:46 Dicyclomine 20 Mg Tab PO Not Given BID RYAN Duloxetine HCl 60 mg 03/25/20 21:00 03/26/20 21:39 Duloxetine 60 Mg Cap PO Not Given HS RYAN Enoxaparin Sodium 40 mg 03/26/20 09:00 03/27/20 08:48 Enoxaparin Sodium 40 Mg/0.4 Ml Syringe SC 40 mg 0900 RYAN Administration Fluticasone Propionate 0 gm 03/26/20 09:00 03/27/20 08:48 Fluticasone Propionate Nasal [place] 16 Gm Bottle NASAL 2 spr DAILY RYAN Administration Cefepime HCl 1 gm/ Sodium 100 mls @ 200 mls/hr 03/25/20 21:00 03/27/20 08:48 Chloride IVPB 100 mls Q12HR RYAN Administration Azithromycin 500 mg/ Sodium 250 mls @ 250 mls/hr 03/26/20 12:00 03/27/20 12:12 Chloride IVPB 250 mls 1200 RYAN Administration Sodium Chloride 1,000 mls @ 125 mls/hr 03/27/20 08:28 03/27/20 11:22 Normal Saline 0.9% IV 1,000 mls .Q8H RYAN Administration Magnesium Hydroxide 30 ml 03/26/20 10:34 03/26/20 13:37 Milk Of Magnesia 30 Ml Udcup PO 30 ml DAILYPRN PRN Administration Constipation Ondansetron HCl 4 mg 03/25/20 14:41 03/27/20 11:22 Ondansetron Pf 4 Mg/2 Ml Vial IVP 4 mg Q6H PRN Administration Nausea/Vomiting Pantoprazole Sodium 40 mg 03/26/20 09:00 03/27/20 08:47 Pantoprazole 40 Mg Granules Packet PO Not Given DAILY RYAN Pantoprazole Sodium 40 mg 03/27/20 09:00 03/27/20 08:48 Pantoprazole 40 Mg Vial IVP 40 mg DAILY RYAN Administration Senna/Docusate Sodium 2 tab 03/25/20 14:41 03/27/20 05:22 Senokot S 8.6-50 Mg Tab PO 2 tab BIDPRN PRN Administration Constipation Sodium Chloride 10 ml 03/27/20 09:00 03/27/20 08:48 Flush - Normal Saline 10 Ml Syringe IVF 10 ml Q12HR RYAN Administration Zolpidem Tartrate 10 mg 03/25/20 21:00 03/26/20 21:42 Zolpidem Tartrate 5 Mg Tab PO 10 mg HS RYAN Administration - Exam General Appearance: awake alert Eye: PERRL, anicteric sclera ENT: no oropharyngeal lesions, moist mucosa Neck: supple, no JVD Heart: RRR, no murmur Respiratory: no wheezes, no rales, no ronchi Gastrointestinal: soft, non-distended, normal bowel sounds Extremities: no cyanosis, no edema Neurological: cranial nerve grossly intact, no focal deficits Psychiatric: A&O x 3 Hosp A/P (1) PNA (pneumonia) Code(s): J18.9 - PNEUMONIA, UNSPECIFIED ORGANISM Status: Acute Qualifiers: Pneumonia type: due to unspecified organism (2) Obesity (BMI 30.0-34.9) Code(s): E66.9 - OBESITY, UNSPECIFIED Status: Chronic (3) GEETHA (obstructive sleep apnea) Code(s): G47.33 - OBSTRUCTIVE SLEEP APNEA (ADULT) (PEDIATRIC) Status: Chronic (4) Mood disorder Code(s): F39 - UNSPECIFIED MOOD [AFFECTIVE] DISORDER Status: Chronic (5) Status post gastric bypass for obesity Code(s): Z98.84 - BARIATRIC SURGERY STATUS Status: Acute - Plan is on cefepime and zithromax, will switch to omnicef once cleared to eat by surgery. i.spirometry home meds nebs prn iv fluids to ambulate as tolerated hemostable await bowel xray/gastrograffin study
--- NOTE | 2020-03-27 12:25 | RAD ---
EXAM: XR UGI Single Contrast No Air PROVIDED CLINICAL HISTORY: Vomiting after gastric bypass surgery. COMPARISON: None FINDINGS: The patient was administered 15 mL of Gastrografin by mouth. Contrast traverses the GE junction freel y and without holdup extending into the gastric pouch and subsequently small bowel. Postoperative changes related to gastric bypass procedure are noted. There is no extravasation of contrast seen to suggest a leak. The patient was noted to experience nausea and vomiting approximately 5 to 10 minutes postprocedure. Duct Layer Helper image demonstrates a dorsal column stimulator with leads in place overlying the lower thoracic spine at the T9-10 level. Surgical clips overlie the upper quadrants bilaterally with radiopaque suture overlying left upper quadrant. Minimal amount of residual contrast is seen in the colon. Bowel gas pattern is otherwise nonspecific. Patchy parenchymal density is seen in the left lung base which could be related to atelectasis versus pneumonia. Follow-up to resolution is recommended. Fluoroscopy: Time-0.4 minutes Dose-31.012 ocasio centimeter squared IMPRESSION: 1. Postoperative changes related to gastric bypass procedure. There is no extravasation of contrast s een to suggest a leak, and there is no holdup of contrast at the level of the GE junction or at the gastroenteric anastomosis. 2. Incomplete visualization of parenchymal opacity at the left lung base which may represent atelecta sis versus pneumonia. Follow-up to resolution is recommended.
[2020-03-27] MEDS: Promethazine HCl 12.5 MG in Sodium Chloride 0.9% 50 ML IVPB PRN ×2 (13:17→22:05)
[2020-03-27] MEDS: Acetaminophen 325 MG TAB PO PRN ×2 (13:17→21:10)
[2020-03-27] MEDS: Multivitamins, Adult 10 ML, Thiamine HCl 100 MG in Sodium Chloride 0.9% 1,000 ML IV SCH (14:35)
[2020-03-27] MEDS: Zolpidem Tartrate 5 MG TAB PO SCH (21:10)
[2020-03-27] MEDS: DULoxetine 60 MG CAP PO SCH (22:10)
[2020-03-28] MEDS: Sodium Chloride 0.9% 1,000 ML IV SCH ×3 (00:36→16:53)
--- NOTE | 2020-03-28 08:22 | PRG ---
DATE OF SERVICE: 03/28/2020 SUBJECTIVE: The patient is feeling a lot better. She has passed a lot of gas. Nausea has resolved. She is tolerating sips of liquids and ice chips. OBJECTIVE: VITAL SIGNS: Temperature 97.9, pulse is 72, and blood pressure 120/71. GENERAL: She looks much better. ABDOMEN: Soft, nondistended. ASSESSMENT: Doing well. PLAN: Clear liquid diet. Job ID: [id number]
[2020-03-28] MEDS: Pantoprazole 40 MG VIAL IVP SCH (08:38)
[2020-03-28] MEDS: Fluticasone Propionate Nasal Spray 16 gm Bottle NASAL SCH (08:38)
[2020-03-28] MEDS: Dicyclomine 20 MG TAB PO SCH ×2 (08:39→20:57)
[2020-03-28] MEDS: Bupropion 150 MG XL TAB PO SCH (08:39)
[2020-03-28] MEDS: Cefdinir 300 MG CAP PO SCH ×2 (08:39→20:56)
[2020-03-28] MEDS: Enoxaparin Sodium 40 MG/0.4 ML SYRINGE SC SCH (08:40)
[2020-03-28] MEDS: Acetaminophen 325 MG TAB PO PRN ×3 (09:33→20:56)
--- NOTE | 2020-03-28 12:43 | PDOC.HOSPP ---
- Subjective Encounter Date: 03/28/20 Encounter Time: 08:30 Subjective: is sitting in chair and ambulating in room no sob or abd pain or nausea this am feels better is tolerating liq diet - Objective Vital Signs & Weight: Vital Signs (12 hours) Temp Pulse Resp BP Pulse Ox 03/28/20 08:40 93 L 03/28/20 07:51 97.8 F 74 20 148/94 H 93 L 03/28/20 04:06 97.9 F 72 16 120/71 94 L Weight Weight 191 lb I&O: 03/27/20 03/28/20 03/29/20 06:59 06:59 06:59 Intake Total 2210 4715 Balance 2210 4715 Result Diagrams: 03/26/20 05:31 03/26/20 05:31 Hospitalist ROS - Medication Medications: Active Medications Generic Name Dose Route Start Last Admin Trade Name Freq PRN Reason Stop Dose Admin Acetaminophen 650 mg 03/25/20 14:41 03/28/20 09:33 Acetaminophen 325 Mg Tab PO 650 mg Q4H PRN Administration Headache/Fever/Mild Pain (1-3) Bupropion HCl 150 mg 03/26/20 09:00 03/28/20 08:39 Bupropion 150 Mg Xl Tab PO 150 mg DAILY RYAN Administration Cefdinir 300 mg 03/28/20 09:00 03/28/20 08:39 Cefdinir 300 Mg Cap PO 300 mg BID RYAN Administration Dicyclomine HCl 20 mg 03/25/20 21:00 03/28/20 08:39 Dicyclomine 20 Mg Tab PO 20 mg BID RYAN Administration Duloxetine HCl 60 mg 03/25/20 21:00 03/27/20 22:10 Duloxetine 60 Mg Cap PO Not Given HS RYAN Enoxaparin Sodium 40 mg 03/26/20 09:00 03/28/20 08:40 Enoxaparin Sodium 40 Mg/0.4 Ml Syringe SC 40 mg 0900 RYAN Administration Fluticasone Propionate 0 gm 03/26/20 09:00 03/28/20 08:38 Fluticasone Propionate Nasal [place] 16 Gm Bottle NASAL 1 spr DAILY RYAN Administration Sodium Chloride 1,000 mls @ 125 mls/hr 03/27/20 08:28 03/28/20 11:59 Normal Saline 0.9% IV 1,000 mls .Q8H RYAN Administration Multivitamins 10 ml/ Thiamine 1,011 mls @ 125 mls/hr 03/27/20 14:00 03/27/20 14:35 HCl 100 mg/ Sodium Chloride IV 1,011 mls Q24HR RYAN Administration Promethazine HCl 12.5 mg/ 50.5 mls @ 202 mls/hr 03/27/20 12:10 03/27/20 22:05 Sodium Chloride IVPB 50.5 mls Q2H PRN Administration Nausea/Vomiting Magnesium Hydroxide 30 ml 03/26/20 10:34 03/26/20 13:37 Milk Of Magnesia 30 Ml Udcup PO 30 ml DAILYPRN PRN Administration Constipation Ondansetron HCl 4 mg 03/25/20 14:41 03/27/20 11:22 Ondansetron Pf 4 Mg/2 Ml Vial IVP 4 mg Q6H PRN Administration Nausea/Vomiting Pantoprazole Sodium 40 mg 03/27/20 09:00 03/28/20 08:38 Pantoprazole 40 Mg Vial IVP 40 mg DAILY RYAN Administration Senna/Docusate Sodium 2 tab 03/25/20 14:41 03/27/20 05:22 Senokot S 8.6-50 Mg Tab PO 2 tab BIDPRN PRN Administration Constipation Sodium Chloride 10 ml 03/27/20 09:00 03/28/20 08:40 Flush - Normal Saline 10 Ml Syringe IVF 10 ml Q12HR RYAN Administration Zolpidem Tartrate 10 mg 03/25/20 21:00 03/27/20 21:10 Zolpidem Tartrate 5 Mg Tab PO 10 mg HS RYAN Administration - Exam General Appearance: awake alert Eye: PERRL, anicteric sclera ENT: no oropharyngeal lesions, moist mucosa Neck: supple, no JVD Heart: RRR, no murmur Respiratory: no wheezes, no rales Gastrointestinal: soft, non-tender, non-distended, normal bowel sounds Extremities: no cyanosis, no edema Neurological: cranial nerve grossly intact, no focal deficits Psychiatric: normal affect, A&O x 3 Hosp A/P (1) PNA (pneumonia) Code(s): J18.9 - PNEUMONIA, UNSPECIFIED ORGANISM Status: Acute Qualifiers: Pneumonia type: due to unspecified organism (2) Obesity (BMI 30.0-34.9) Code(s): E66.9 - OBESITY, UNSPECIFIED Status: Chronic (3) GEETHA (obstructive sleep apnea) Code(s): G47.33 - OBSTRUCTIVE SLEEP APNEA (ADULT) (PEDIATRIC) Status: Chronic (4) Mood disorder Code(s): F39 - UNSPECIFIED MOOD [AFFECTIVE] DISORDER Status: Chronic (5) Status post gastric bypass for obesity Code(s): Z98.84 - BARIATRIC SURGERY STATUS Status: Acute - Plan is on omnicef (may give liq if she cant tolerate capsule). i.spirometry home meds nebs prn iv fluids to ambulate as tolerated hemostable xray/gastrograffin study shows no leak at surgical site likely dc plan in am if ok with gen surgery
[2020-03-28] MEDS: Multivitamins, Adult 10 ML, Thiamine HCl 100 MG in Sodium Chloride 0.9% 1,000 ML IV SCH (17:04)
[2020-03-28] MEDS: DULoxetine 60 MG CAP PO SCH (20:57)
[2020-03-28] MEDS: Zolpidem Tartrate 5 MG TAB PO SCH (20:57)
[2020-03-29] MEDS: Sodium Chloride 0.9% 1,000 ML IV SCH ×2 (02:33→08:46)
[2020-03-29] MEDS: Bupropion 150 MG XL TAB PO SCH (08:44)
[2020-03-29] MEDS: Cefdinir 300 MG CAP PO SCH (08:44)
[2020-03-29] MEDS: Dicyclomine 20 MG TAB PO SCH (08:44)
[2020-03-29] MEDS: Enoxaparin Sodium 40 MG/0.4 ML SYRINGE SC SCH (08:44)
[2020-03-29] MEDS: Acetaminophen 325 MG TAB PO PRN (08:44)
[2020-03-29] MEDS: Pantoprazole 40 MG VIAL IVP SCH (08:45)
[2020-03-29] MEDS: Fluticasone Propionate Nasal Spray 16 gm Bottle NASAL SCH (08:45)
--- NOTE | 2020-03-29 15:56 | DIS ---
DATE OF ADMISSION: 03/25/2020 DATE OF DISCHARGE: 03/29/2020 DISCHARGE DISPOSITION: Home. PRIMARY DISCHARGE DIAGNOSES: Pneumonia resolving, status post gastric bypass surgery for obesity, mood disorder, obstructive sleep apnea, obesity. PROCEDURES DONE DURING HOSPITALIZATION: X-ray with Gastrografin study done, showed no leak at surgical site. Abdominal and pelvic CAT scan done, showed possible developing infiltrate at the lung base, postop gastric bypass, there is no sign of leak seen at the surgical site. CT angio chest done, showed consolidation of posteromedial aspect of each lung base, no CT evidence of pulmonary embolus. LABORATORY DATA: Hemoglobin and hematocrit are 10 and 29, platelet count 264, MCV 89, BUN 5, creatinine 0.6. DISCHARGE MEDICATIONS: 1. Bentyl 20 mg twice daily. 2. Cymbalta 60 mg p.o. at bedtime. 3. Protonix 40 mg p.o. daily. 4. Ultram p.r.n. for pain. 5. Wellbutrin extended release 150 mg daily. 6. Zolpidem 10 mg p.o. at bedtime. 7. Zyrtec 10 mg daily. ALLERGIES: NO KNOWN DRUG ALLERGIES. DISCHARGE PLAN: The patient to follow up with Dr. Reaves in 1 week. She needs to follow up with her primary care physician in 1 week. BRIEF COURSE DURING HOSPITALIZATION: The patient initially came to the emergency room with complaints of fever and abdominal pain with nausea. She has had recent gastric bypass done for morbid obesity and was discharged home. Her initial CAT scan was suspicious for possible pneumonia. She was placed on IV antibiotics along with nebulization. She was also kept n.p.o. initially and was slowly weaned into liquid diet. She was gently hydrated during her stay here. The patient was evaluated by Dr. Reaves. She has done remarkably well during her stay here. Prior to discharge, she was ambulating and tolerating bariatric diet. She is cleared for discharge by Dr. Reaves. The patient was counseled to take in adequate caloric intake and to be active when she goes home. Please note, I have seen and examined the patient on the day of discharge. Job ID: [id number]
[2020-03-29 16:11] VITALS: BP 130/77; TEMP 98.4
--- NOTE | 2020-03-31 08:55 | DIS ---
DATE OF ADMISSION: 03/25/2020 DATE OF DISCHARGE: 03/29/2020 DISCHARGE DIAGNOSES: Nausea, vomiting, post gastric bypass with pneumonia. PROCEDURES DURING ADMISSION: CT of chest and abdomen, and barium swallow. HOSPITAL COURSE: The patient was admitted. CT scan showed bilateral basilar infiltrates consistent with pneumonia. She had a temperature of 101.5. She was started on antibiotics. Her white count came back down to normal. Fever resolved. She was still having some issues with swallowing. Barium swallow was performed, it was fine. She then started having bowel movements, passing gas and was able to tolerate liquids. She is now discharged home on ciprofloxacin and her usual medications. She will follow up with me in 1 week. Job ID: [id number]
== END 2020-03-29 16:20 | disposition home or self-care (01) | DRG 871 ==
LOC: ERS 06:13 → SURG A 14:03
PROVIDERS: ADMIT Surgery; ATTEND Surgery
DX: A41.9 Sepsis, unspecified organism (principal); J18.9 Pneumonia, unspecified organism; G47.33 Obstructive sleep apnea (adult) (pediatric); K21.9 Gastro-esophageal reflux disease without esophagitis; M19.90 Unspecified osteoarthritis, unspecified site; F39 Unspecified mood [affective] disorder; E66.01 Morbid (severe) obesity due to excess calories; F32.9 Major depressive disorder, single episode, unspecified; R11.10 Vomiting, unspecified; Z68.34 Body mass index [BMI] 34.0-34.9, adult; Z98.84 Bariatric surgery status; Z79.899 Other long term (current) drug therapy
CPT/HCPCS: 36415; 71045; 71275; 74177; 74240; 80048; 80053; 81003; 81015; 82553; 83605; 83880; 84484; 85025; 87040; 87804; 93005; 94640; 96365; 96367; 96375; C9113; J0456; J0692; J0696; J1650; J2270; J2405; J2550; J3370; J3411; J3490; J7050; J7620; Q9963; Q9967

== ENCOUNTER 2020-04-30 19:54 | Emergency (ER) | payer BC ==
[~2020-04-30 19:54] MED LIST: Iopamidol-370 76% 500 ML 1 ML ONE
[2020-04-30 20:21] LABS: #Eosinphils 0.1 thou/uL (0.0-0.7); #Lymphocytes 1.7 thou/uL (1.20-3.40); #Monocytes 0.4 thou/uL (0.11-0.59); #Neutrophils 6.4 thou/uL (1.40-6.50); %Basophils 0.4 % (0.0-1.0); %Eosinophils 1.4 % (0.0-10.0); %Lymphocytes 19.9 % (21.0-51.0); %Monocytes 4.6 % (0.0-10.0); %Neutrophils 73.8 % (42.0-75.0); Hemoglobin 12.7 g/dL (12.0-16.0); Mean Corpuscular Hemoglobin 29.4 pg (27.0-31.0); Mean Corpuscular Volume 88.9 fL (78.0-98.0); Mean Platelet Volume 9.5 fL (7.4-10.4); Platelet Count 289 thou/uL (130-400); RBC Distribution Width 13.7 % (11.5-14.5); Red Blood Cell (RBC) Count 4.33 mill/uL (4.20-5.40); White Blood Cell (WBC) Count 8.6 thou/uL (4.8-10.8)
[2020-04-30 20:23] LABS: Bacteria/HPF None Seen HPF (None Seen); Bilirubin Negative (Negative); Blood, Urine Negative (Negative); Clarity Clear (Clear); Glucose, Urine (Dipstick) Normal (Negative); Ketone, Urine 100 mg/dL (Negative); Leukocyte Negative Leu/uL (Negative); Nitrite Negative (Negative); Protein, Urine (Dipstick) 30 mg/dL (Neg-Trace); Specific Gravity, Urine 1.035 (1.002-1.036); Squamous Epithelial 0-3 HPF (0-3); WBC/HPF 0-3 HPF (0-3); pH, Urine 5.5 (5.0-9.0)
[2020-04-30] MEDS ORDERED: Morphine 4 MG/ML VIAL ONE ×2 (20:41→22:51)
[2020-04-30 20:46] LABS: ALT (SGPT) 17 U/L (8-55); AST (SGOT) 15 U/L (5-34); Albumin 4.1 g/dL (3.5-5.0); Alkaline Phosphatase 89 U/L (40-110); Anion Gap 14 mmol/L (10-20); BUN (Urea Nitrogen) 16 mg/dL (7.0-18.7); Bilirubin, Total 0.3 mg/dL (0.2-1.2); Calc. Creatinine Clearance 0 mL/min (70-130); Calcium 9.1 mg/dL (7.8-10.44); Carbon Dioxide 26 mmol/L (22-29); Chloride 104 mmol/L (98-107); Estimated GFR-MDRD 73; Globulin 3.5 g/dL (2.4-3.5); Glucose 125 mg/dL (70-105); Lipase 28 U/L (8-78); Potassium 3.9 mmol/L (3.5-5.1); Protein, Total 7.6 g/dL (6.0-8.3); Sodium 140 mmol/L (136-145)
--- NOTE | 2020-05-01 07:11 | CT ---
CT ABDOMEN AND PELVIS WITH IV CONTRAST: Date: 04/30/2020 HISTORY: Abdominal pain. COMPARISON: 03/25/2020. FINDINGS: The lung bases are unremarkable. Postop changes of cholecystectomy and gastric bypass surgery are aga in seen. There is continued prominence of the biliary ductal system likely due to reservoir effect. N o hepatic mass is seen. The spleen, pancreas, adrenal glands, and kidneys are normal. No free air or lymphadenopathy seen in the abdomen or pelvis. A tiny amount of free fluid is seen in the pelvis. The small bowel loops are not abnormally dilated. The appendix is normal. No abnormally loculated fluid collections are seen to suggest abscess formation. The patient is post hysterectomy. There is mild induration of the intraperitoneal fat in the anterior aspect of the mid abdomen which e xtends to the wall of a small bowel loop. There are vascular calcifications without evidence of aneurysmal dilatation of the abdominal aorta. T here is a dorsal column stimulator with leads entering the thoracic canal at T10-11 level. IMPRESSION: Probable enteritis. POS: [facility]
== END 2020-05-01 00:10 | disposition home or self-care (01) ==
LOC: ERS 19:54
DX: K50.90 Crohn's disease, unspecified, without complications (principal); K21.9 Gastro-esophageal reflux disease without esophagitis; M19.90 Unspecified osteoarthritis, unspecified site; G47.30 Sleep apnea, unspecified; F32.9 Major depressive disorder, single episode, unspecified; Z79.899 Other long term (current) drug therapy
CPT/HCPCS: 36415; 74177; 80053; 81003; 81015; 83690; 85025; 96372; 96374; 96376; J0500; J2270; Q9967

== ENCOUNTER 2020-07-11 18:00 | Outpatient (CLI) | payer BC | END 2020-07-11 18:01 | disposition home or self-care (01) | LOC: SLEEPLAB 18:00 | PROVIDERS: ATTEND Internal Medicine Critical Care Medicine | DX: G47.33 Obstructive sleep apnea (adult) (pediatric) (principal); R06.83 Snoring | CPT/HCPCS: 95806 ==

== ENCOUNTER 2020-08-18 07:46 | Outpatient (CLI) | payer BC ==
--- NOTE | 2020-08-18 08:48 | MMO ---
Bilateral MAMMO Bilat Screen [facility]. CLINICAL HISTORY: Patient is 50 years old and is seen for screening. The patient has the following family history of breast cancer: female cousin. The patient has no personal history of cancer. The patient has a history of right Excisional Biopsy in 2012 - benign and right Excisional Biopsy in 2001 - benign. VIEWS: The views performed were: bilateral craniocaudal with tomosynthesis and bilateral mediolateral oblique with tomosynthesis. FILMS COMPARED: The present examination has been compared to prior imaging studies performed at [facility] on 06/20/2016, 06/20/2017, 08/06/2018 and 08/10/2019. This study has been interpreted with the assistance of computer-aided detection. MAMMOGRAM FINDINGS: There are scattered fibroglandular densities. There are stable benign appearing calcifications seen in both breasts. There are no suspicious masses, suspicious calcifications, or new areas of architectural distortion. IMPRESSION: THERE IS NO MAMMOGRAPHIC EVIDENCE OF MALIGNANCY. A ROUTINE FOLLOW-UP MAMMOGRAM IN 1 YEAR IS RECOMMENDED. THE RESULTS OF THIS EXAM WERE SENT TO THE PATIENT. ACR BI-RADS Category 2 - Benign finding MAMMOGRAPHY NOTE: 1. A negative mammogram report should not delay a biopsy if a dominant of clinically suspicious mass is present. 2. Approximately 10% to 15% of breast cancers are not detected by mammography. 3. Adenosis and dense breasts may obscure an underlying neoplasm. Reported by: DIDI MEIER MD Electonically Signed: [id number]
== END 2020-08-18 07:47 | disposition home or self-care (01) ==
LOC: BICMAMMO 07:46
PROVIDERS: ATTEND Family Medicine
DX: Z12.31 Encounter for screening mammogram for malignant neoplasm of breast (principal); Z80.3 Family history of malignant neoplasm of breast
CPT/HCPCS: 77063; 77067

== ENCOUNTER 2020-09-28 10:42 | Emergency (ER) | payer BC ==
[2020-09-28 11:18] LABS: #Eosinphils 0.1 thou/uL (0.0-0.7); #Lymphocytes 2.1 thou/uL (1.20-3.40); #Monocytes 0.5 thou/uL (0.11-0.59); #Neutrophils 4.5 thou/uL (1.40-6.50); %Basophils 0.7 % (0.0-1.0); %Eosinophils 1.2 % (0.0-10.0); %Lymphocytes 29.4 % (21.0-51.0); %Monocytes 6.7 % (0.0-10.0); %Neutrophils 62.1 % (42.0-75.0); Hemoglobin 11.9 g/dL (12.0-16.0); Mean Corpuscular HGB CONC 32.7 g/dL (32.0-36.0); Mean Corpuscular Hemoglobin 29.5 pg (27.0-31.0); Mean Corpuscular Volume 90.4 fL (78.0-98.0); Mean Platelet Volume 9.4 fL (7.4-10.4); Platelet Count 317 thou/uL (130-400); RBC Distribution Width 12.1 % (11.5-14.5); Red Blood Cell (RBC) Count 4.04 mill/uL (4.20-5.40); White Blood Cell (WBC) Count 7.2 thou/uL (4.8-10.8)
[2020-09-28 11:20] LABS: Bilirubin Negative (Negative); Blood, Urine Negative (Negative); Clarity Clear (Clear); Glucose, Urine (Dipstick) Normal (Negative); Ketone, Urine Negative (Negative); Leukocyte Negative Leu/uL (Negative); Nitrite Negative (Negative); Protein, Urine (Dipstick) Negative (Neg-Trace); Urobilinogen Normal mg/dL (Less than 2)
[2020-09-28] MEDS ORDERED: Iopamidol-370 76% 500 ML 1 ML ONE (11:26)
[2020-09-28 11:34] LABS: ALT (SGPT) 13 U/L (8-55); AST (SGOT) 14 U/L (5-34); Alkaline Phosphatase 97 U/L (40-110); Anion Gap 13 mmol/L (10-20); BUN (Urea Nitrogen) 12 mg/dL (9.8-20.1); Bilirubin, Total 0.3 mg/dL (0.2-1.2); Calc. Creatinine Clearance 0 mL/min (70-130); Calcium 9.3 mg/dL (7.8-10.44); Carbon Dioxide 29 mmol/L (22-29); Chloride 103 mmol/L (98-107); Globulin 3.2 g/dL (2.4-3.5); Glucose 72 mg/dL (70-105); Lipase 26 U/L (8-78); Potassium 3.6 mmol/L (3.5-5.1); Protein, Total 7.2 g/dL (6.0-8.3); Sodium 141 mmol/L (136-145)
[2020-09-28] MEDS ORDERED: Pantoprazole 40 MG VIAL ONE (11:50)
== END 2020-09-28 14:12 | disposition home or self-care (01) ==
LOC: ERS 10:42
DX: R10.9 Unspecified abdominal pain (principal); M54.5 Low back pain; R10.815 Periumbilic abdominal tenderness; K21.9 Gastro-esophageal reflux disease without esophagitis; M19.90 Unspecified osteoarthritis, unspecified site; G47.30 Sleep apnea, unspecified; Z87.19 Personal history of other diseases of the digestive system; Z79.899 Other long term (current) drug therapy
CPT/HCPCS: 36415; 74177; 80053; 81003; 83690; 85025; 96372; 96374; C9113; J0500; Q9967

== ENCOUNTER 2021-06-06 22:08 | Emergency (ER) | payer BC ==
[2021-06-06] MEDS ORDERED: Dexamethasone 4 mg/ml Vial ONE (22:36)
[2021-06-06] MEDS ORDERED: Lorazepam 2 MG/ML VIAL ONE (22:36)
[2021-06-06 23:00] LABS: #Basophils 0.1 thou/uL (0.0-0.2); #Eosinphils 0.1 thou/uL (0.0-0.7); #Lymphocytes 3.7 thou/uL (1.20-3.40); #Monocytes 1.2 thou/uL (0.11-0.59); #Neutrophils 6.9 thou/uL (1.40-6.50); %Basophils 0.9 % (0.0-1.0); %Eosinophils 1.2 % (0.0-10.0); %Lymphocytes 30.4 % (21.0-51.0); %Monocytes 10.1 % (0.0-10.0); %Neutrophils 57.4 % (42.0-75.0); Hemoglobin 11.7 g/dL (12.0-16.0); Mean Corpuscular Volume 91.1 fL (78.0-98.0); Mean Platelet Volume 8.2 fL (7.4-10.4); Platelet Count 333 thou/uL (130-400); RBC Distribution Width 11.7 % (11.5-14.5); Red Blood Cell (RBC) Count 3.77 mill/uL (4.20-5.40)
[2021-06-06 23:20] LABS: ALT (SGPT) 18 U/L (8-55); AST (SGOT) 28 U/L (5-34); Albumin 3.8 g/dL (3.5-5.0); Alkaline Phosphatase 74 U/L (40-110); Anion Gap 15 mmol/L (10-20); BUN (Urea Nitrogen) 14 mg/dL (9.8-20.1); Bilirubin, Total 0.2 mg/dL (0.2-1.2); Calc. Creatinine Clearance 0 mL/min (70-130); Calcium 9.1 mg/dL (7.8-10.44); Carbon Dioxide 22 mmol/L (22-29); Chloride 105 mmol/L (98-107); Globulin 3.5 g/dL (2.4-3.5); Glucose 149 mg/dL (70-105); Protein, Total 7.3 g/dL (6.0-8.3); Sodium 138 mmol/L (136-145)
== END 2021-06-06 23:49 | disposition home or self-care (01) ==
LOC: ERS 22:08
DX: R06.02 Shortness of breath (principal); T78.49XA Other allergy, initial encounter; K21.9 Gastro-esophageal reflux disease without esophagitis; M19.90 Unspecified osteoarthritis, unspecified site; G47.30 Sleep apnea, unspecified; Z79.51 Long term (current) use of inhaled steroids; Z79.899 Other long term (current) drug therapy
CPT/HCPCS: 36415; 80053; 84484; 85025; 96374; 96375; J1100; J2060

== ENCOUNTER 2021-08-27 10:56 | Outpatient (CLI) | payer BC | END 2021-08-27 10:57 | disposition home or self-care (01) | LOC: BICULT 10:56 | PROVIDERS: ATTEND Family Medicine | DX: R92.8 Other abnormal and inconclusive findings on diagnostic imaging of breast (principal) ==

== ENCOUNTER 2021-11-05 09:52 | Emergency (ER) | payer BC, MEDICARE, OTHER ==
[2021-11-05 10:45] LABS: #Eosinphils 0.1 thou/uL (0.0-0.7); #Lymphocytes 1.6 thou/uL (1.20-3.40); #Monocytes 0.3 thou/uL (0.11-0.59); #Neutrophils 3.4 thou/uL (1.40-6.50); %Basophils 0.9 % (0.0-1.0); %Eosinophils 1.4 % (0.0-10.0); %Lymphocytes 29.1 % (21.0-51.0); %Monocytes 6.2 % (0.0-10.0); %Neutrophils 62.5 % (42.0-75.0); Hemoglobin 11.7 g/dL (12.0-16.0); Mean Corpuscular HGB CONC 32.6 g/dL (32.0-36.0); Mean Corpuscular Hemoglobin 30.3 pg (27.0-31.0); Mean Corpuscular Volume 92.7 fL (78.0-98.0); Mean Platelet Volume 9.3 fL (7.4-10.4); Platelet Count 271 thou/uL (130-400); RBC Distribution Width 11.4 % (11.5-14.5); Red Blood Cell (RBC) Count 3.88 mill/uL (4.20-5.40); White Blood Cell (WBC) Count 5.5 thou/uL (4.8-10.8)
[2021-11-05 11:35] LABS: Albumin 4.2 g/dL (3.5-5.0)
[2021-11-05 11:37] LABS: Calcium 9.3 mg/dL (7.8-10.44); Chloride 106 mmol/L (98-107); Potassium 4.8 mmol/L (3.5-5.1); Sodium 141 mmol/L (136-145)
[2021-11-05 11:38] LABS: Globulin 2.9 g/dL (2.4-3.5); Glucose 94 mg/dL (70-105); Protein, Total 7.1 g/dL (6.0-8.3)
[2021-11-05 11:39] LABS: Anion Gap 15 mmol/L (10-20); Carbon Dioxide 25 mmol/L (22-29)
[2021-11-05 11:40] LABS: Bilirubin, Total 0.4 mg/dL (0.2-1.2)
[2021-11-05 11:41] LABS: Alkaline Phosphatase 96 U/L (40-110); Calc. Creatinine Clearance 0 mL/min (70-130)
[2021-11-05] MEDS ORDERED: Ketorolac Tromethamine 30 MG/ML VIAL ONE (11:41)
[2021-11-05 11:42] LABS: BUN (Urea Nitrogen) 10 mg/dL (9.8-20.1)
[2021-11-05 11:43] LABS: AST (SGOT) 27 U/L (5-34)
[2021-11-05 11:44] LABS: ALT (SGPT) 17 U/L (8-55); Lipase 30 U/L (8-78)
[2021-11-05 12:04] LABS: Bacteria/HPF None Seen HPF (None Seen); Bilirubin Negative (Negative); Blood, Urine Negative (Negative); Clarity Clear (Clear); Glucose, Urine (Dipstick) Normal (Negative); Ketone, Urine Negative (Negative); Leukocyte 75 Leu/uL (Negative); Nitrite Negative (Negative); Protein, Urine (Dipstick) Negative (Neg-Trace); RBC/HPF 0-3 HPF (0-3); Specific Gravity, Urine 1.015 (1.002-1.036); Squamous Epithelial 0-3 HPF (0-3); Urobilinogen Normal mg/dL (Less than 2); WBC/HPF 0-3 HPF (0-3); pH, Urine 5.5 (5.0-9.0)
[2021-11-05] MEDS ORDERED: Ondansetron PF 4 MG/2 ML Vial ONE (12:51)
== END 2021-11-05 13:01 | disposition home or self-care (01) ==
LOC: ERS 09:52
DX: R07.2 Precordial pain (principal); K21.9 Gastro-esophageal reflux disease without esophagitis; Z79.899 Other long term (current) drug therapy
CPT/HCPCS: 36415; 71045; 80053; 81003; 81015; 83690; 84484; 85025; 93005; 96374; 96375; J1885; J2405

== ENCOUNTER 2021-11-14 08:21 | Outpatient (CLI) | payer BC | END 2021-11-14 08:22 | disposition home or self-care (01) | LOC: BICCT 08:21 | PROVIDERS: ATTEND Nurse Practitioner Family | DX: M54.6 Pain in thoracic spine (principal) | CPT/HCPCS: 71275 ==

== ENCOUNTER 2021-12-18 08:19 | Outpatient (CLI) | payer BC | END 2021-12-18 08:20 | disposition home or self-care (01) | LOC: BICULT 08:19 | PROVIDERS: ATTEND Physician Assistant Medical | DX: R79.89 Other specified abnormal findings of blood chemistry (principal) | CPT/HCPCS: 76705 ==

== ENCOUNTER 2022-10-02 12:15 | Outpatient (CLI) | payer BC | END 2022-10-02 12:16 | disposition home or self-care (01) | LOC: BICMAMMO 12:15 | PROVIDERS: ATTEND Family Medicine | DX: Z12.31 Encounter for screening mammogram for malignant neoplasm of breast (principal) | CPT/HCPCS: 77063; 77067 ==

== ENCOUNTER 2023-02-13 11:23 | Day surgery (SDC) | payer BC ==
[2023-02-11 15:58] VITALS: BMI 27.4
[2023-02-13] MEDS ORDERED: Propofol 500 MG/50 ML VIAL ONE (15:33)
[2023-02-13] MEDS ORDERED: fentaNYL PF 100 MCG/2 ML SYRINGE ONE (15:33)
[2023-02-13] MEDS ORDERED: Vancomycin 1 GM VIAL ONE (15:36)
[2023-02-13] MEDS ORDERED: EPINEPHrine 1 MG/ML AMP ONE (15:36)
[2023-02-13] MEDS ORDERED: Midazolam HCl 2 mg/2 ml Vial ONE (15:36)
[2023-02-13] MEDS ORDERED: Sodium Chloride 0.9% 100 ML ONE (15:36)
[2023-02-13] MEDS ORDERED: CEFAZOLIN 1 GM VIAL ONE (15:36)
[2023-02-13] MEDS ORDERED: Lidocaine 1% PF 5 ML VIAL ONE (15:36)
[2023-02-13] MEDS ORDERED: Bupivacaine PF 0.5% 30 ML VIAL ONE (15:36)
[2023-02-13] MEDS ORDERED: PROPOFOL 200 MG/20 ML VIAL ONE (15:43)
[2023-02-13] MEDS ORDERED: Ondansetron PF 4 MG/2 ML Vial ONE (15:43)
== END 2023-02-13 17:23 | disposition home or self-care (01) ==
LOC: SDC 11:23
PROVIDERS: ATTEND Specialist
PROC: 0JH Subcutaneous Tissue and Fascia, Insertion (ICD-10-PCS; principal; 2023-02-13)
PROC: 0JPT3MZ Removal of Stimulator Generator from Trunk Subcutaneous Tissue and Fascia, Percutaneous Approach (ICD-10-PCS; principal; 2023-02-13)
DX: G90.522 Complex regional pain syndrome I of left lower limb (principal); G89.4 Chronic pain syndrome; F32.9 Major depressive disorder, single episode, unspecified; K58.9 Irritable bowel syndrome, unspecified; K21.9 Gastro-esophageal reflux disease without esophagitis; Z98.84 Bariatric surgery status; Z90.710 Acquired absence of both cervix and uterus; Z90.49 Acquired absence of other specified parts of digestive tract; Z98.890 Other specified postprocedural states; Z79.899 Other long term (current) drug therapy
CPT/HCPCS: J0171; J0690; J2250; J2405; J2704; J3370; J3490; S0020

== ENCOUNTER 2023-05-02 13:23 | Emergency (ER) | payer BC ==
[~2023-05-02 13:23] MED LIST changes: -Iopamidol-370 76% 500 ML 1 ML ONE; +Iopamidol-370 76% 500 ML MDV (1 ML CHARGE) ONE
[2023-05-02] MEDS ORDERED: Ketorolac Tromethamine 30 MG/ML VIAL ONE (15:54)
[2023-05-02 16:13] LABS: #Eosinphils 0.2 thou/uL (0.0-0.7); #Monocytes 0.4 thou/uL (0.11-0.59); #Neutrophils 4.2 thou/uL (1.40-6.50); %Basophils 0.6 % (0.0-1.0); %Eosinophils 2.6 % (0.0-10.0); %Lymphocytes 26.2 % (21.0-51.0); %Monocytes 6.2 % (0.0-10.0); %Neutrophils 64.1 % (42.0-75.0); Hematocrit 34.8 % (36.0-47.0); Hemoglobin 11.5 g/dL (12.0-16.0); Mean Corpuscular Hemoglobin 29.4 pg (27.0-31.0); Platelet Count 324 10x3/uL (130-400); RBC Distribution Width 12.8 % (11.5-14.5); Red Blood Cell (RBC) Count 3.91 mill/uL (4.20-5.40); White Blood Cell (WBC) Count 6.6 10x3/uL (4.8-10.8)
[2023-05-02 16:36] LABS: ALT (SGPT) 14 U/L (8-55); AST (SGOT) 16 U/L (5-34); Albumin 4.4 g/dL (3.5-5.0); Alkaline Phosphatase 93 U/L (40-110); Anion Gap 13 mmol/L (10-20); BUN (Urea Nitrogen) 10 mg/dL (9.8-20.1); Bilirubin, Total 0.3 mg/dL (0.2-1.2); Calc. Creatinine Clearance 0 mL/min (70-130); Calcium 9.5 mg/dL (7.8-10.44); Carbon Dioxide 26 mmol/L (22-29); Chloride 106 mmol/L (98-107); Estimated GFR 91; Globulin 2.7 g/dL (2.4-3.5); Glucose 94 mg/dL (70-105); Lipase 33 U/L (8-78); Potassium 3.8 mmol/L (3.5-5.1); Protein, Total 7.1 g/dL (6.0-8.3); Sodium 141 mmol/L (136-145)
[2023-05-02 16:37] LABS: Troponin I Less than 0.010 ng/mL (< 0.028)
== END 2023-05-02 17:57 | disposition home or self-care (01) ==
LOC: ERS 13:23
DX: M54.50 Low back pain, unspecified (principal)
CPT/HCPCS: 36415; 71045; 72072; 74177; 80053; 83690; 84484; 85025; 93005; 96374; J1885; Q9967

== ENCOUNTER 2025-03-03 15:20 | Emergency (ER) | payer BC ==
[2025-03-03] MEDS ORDERED: Ketorolac Tromethamine 30 MG (1 mL) VIAL ONE (16:42)
[2025-03-03 16:47] LABS: #Basophils 0.03 10x3/uL (0.0-0.2); #Eosinophils 0.11 10x3/uL (0.0-0.7); #Monocytes 0.54 10x3/uL (0.11-0.59); #Neutrophils 4.47 10x3/uL (1.40-6.50); %Basophils 0.4 % (0.0-1.0); %Eosinophils 1.5 % (0.0-10.0); %Lymphocytes 30.6 % (21.0-51.0); %Monocytes 7.3 % (0.0-10.0); %Neutrophils 60.1 % (42.0-75.0); Hematocrit 35.3 % (36.0-47.0); Hemoglobin 11.4 g/dL (12.0-16.0); Mean Corpuscular Hemoglobin 29.6 pg (27.0-31.0); Mean Corpuscular Volume 91.7 fL (78.0-98.0); Platelet Count 307 10x3/uL (130-400); Red Blood Cell (RBC) Count 3.85 mill/uL (4.20-5.40); White Blood Cell (WBC) Count 7.44 10x3/uL (4.8-10.8)
[2025-03-03 17:02] LABS: ALT (SGPT) 17 U/L (Less than 34); AST (SGOT) 24 U/L (11-34); Albumin 4.0 g/dL (3.1-4.5); Alkaline Phosphatase 93 U/L (40-110); Anion Gap 13 mmol/L (10-20); BUN (Urea Nitrogen) 9 mg/dL (9.8-20.1); Bilirubin, Total 0.2 mg/dL (0.3-1.2); Calc. Creatinine Clearance 0 mL/min (70-130); Calcium 9.3 mg/dL (7.8-10.44); Carbon Dioxide 26 mmol/L (22-29); Chloride 106 mmol/L (98-107); Globulin 3.0 g/dL (2.4-3.5); Glucose 90 mg/dL (70-105); Magnesium 2.4 mg/dL (1.6-2.6); Potassium 4.2 mmol/L (3.5-5.1); Sodium 141 mmol/L (136-145)
== END 2025-03-03 17:17 | disposition home or self-care (01) ==
LOC: ERS 15:20
DX: R09.1 Pleurisy (principal)
CPT/HCPCS: 36415; 71046; 80053; 83735; 83880; 84484; 85025; 93005; 96372; J1885

== ENCOUNTER 2025-03-07 13:12 | Outpatient (CLI) | payer BC | END 2025-03-07 13:13 | disposition home or self-care (01) | LOC: RAD 13:12 | PROVIDERS: ATTEND Internal Medicine | DX: R06.00 Dyspnea, unspecified (principal) | CPT/HCPCS: 71046 ==